=== PATIENT | female | born 2000 | race Caucasian/White ===

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

== ENCOUNTER 2018-04-01 20:10 | Emergency (ER) | payer OTHER ==
[2018-04-01] MEDS ORDERED: ACETAMINOPHEN IV (For NPO) 1,000 MG in EMPTY BAG 1 BAG IVPB STA (20:34)
[2018-04-01] MEDS ORDERED: KETOROLAC 30 MG/ML 1 ML VIAL IVP STA (20:35)
[2018-04-01] MEDS ORDERED: SODIUM CHLORIDE 0.9% 1,000 ML IV ONE (20:35)
--- NOTE | 2018-04-01 20:39 | ED ---
Headache HPI - General Mode of arrival: ambulatory Limitations: no limitations <Silva Sandoval - Last Filed: 04/01/18 23:27> <Susanne Thompson - Last Filed: 04/02/18 03:05> - General Chief Complaint: Headache Stated Complaint: headache Time Seen by Provider: 04/01/18 20:22 - History of Present Illness Initial Comments: 18-year-old female patient presents to the emergency department today for evaluation of migraine headache. Patient is have a history of migraines and gets them frequently. Patient states that today the pain is located throughout her head as if she is wearing a cap. Patient states it does radiate down to her neck. States she is sensitive to light. Denies any nausea, vomiting, weakness, blurred vision, double vision, or dizziness with this headache. She denies any new symptoms. States the headache is typical of her usual migraine pattern. States that she did take Tylenol and Motrin earlier in the day and it did not help. Patient denies any recent rash, fever, chills, shortness breath, chest pain, abdominal pain, diarrhea, constipation, back pain, numbness, tingling, dizziness, weakness, hematuria, dysuria, urinary urgency, urinary frequency, or any other complaints. Denies any chance of . (Silva Sandoval) - Related Data Home Medications Medication Instructions Recorded Confirmed Ibuprofen [Motrin Ib] 800 mg PO Q8H PRN 08/28/17 04/01/18 Acetaminophen [Tylenol Extra 1,000 mg PO BID PRN 04/01/18 04/01/18 Strength] Previous Rx's Medication Instructions Recorded SUMAtriptan SUCCINATE [Imitrex] 25 mg PO DAILY PRN #10 tablet 08/28/17 Allergies Allergy/AdvReac Type Severity Reaction Status Date / Time No Known Allergies Allergy Verified 04/01/18 21:14 Review of Systems ROS Other: All systems not noted in ROS Statement are negative. <Silva Sandoval - Last Filed: 04/01/18 23:27> ROS Other: All systems not noted in ROS Statement are negative. <Susanne Thompson - Last Filed: 04/02/18 03:05> ROS Statement: Those systems with pertinent positive or pertinent negative responses have been documented in the HPI. Past Medical History Additional Past Medical History / Comment(s): Migraines History of Any Multi-Drug Resistant Organisms: None Reported Past Surgical History: No Surgical Hx Reported Past Psychological History: No Psychological Hx Reported Smoking Status: Never smoker Past Alcohol Use History: None Reported Past Drug Use History: None Reported <Silva Sandoval - Last Filed: 04/01/18 23:27> General Exam Limitations: no limitations General appearance: alert, in no apparent distress, other (This is a well- developed, well-nourished adult female patient in no acute distress. Vital signs upon presentation are temperature 98.2F, pulse 89, respirations 18, blood pressure 128/83, pulse ox 98% on room air.) Eye exam: Present: normal appearance, PERRL, EOMI. Absent: scleral icterus, conjunctival injection, periorbital swelling ENT exam: Present: normal exam, normal oropharynx, mucous membranes moist Respiratory exam: Present: normal lung sounds bilaterally. Absent: respiratory distress, wheezes, rales, rhonchi, stridor Cardiovascular Exam: Present: regular rate, normal rhythm, normal heart sounds. Absent: systolic murmur, diastolic murmur, rubs, gallop, clicks GI/Abdominal exam: Present: soft, normal bowel sounds. Absent: distended, tenderness, guarding, rebound, rigid Neurological exam: Present: alert, oriented X3, CN II-XII intact, other ( Strength in all 4 extremities is 5/5. ) Psychiatric exam: Present: normal affect, normal mood Skin exam: Present: warm, dry, intact, normal color. Absent: rash <Silva Sandoval - Last Filed: 04/01/18 23:27> Vital Signs 04/01/18 04/01/18 20:14 22:14 Temperature 98.2 F 97.9 F Pulse Rate 89 81 Respiratory 18 16 Rate Blood Pressure 128/83 142/94 O2 Sat by Pulse 98 100 Oximetry Medical Decision Making <Silva Sandoval - Last Filed: 04/01/18 23:27> <Susanne Thompson - Last Filed: 04/02/18 03:05> - Medical Decision Making 18-year-old female patient presents the emergency department today for evaluation of migraine headache. Patient does have history of migraine headache reports no new symptoms. States her symptoms are consistent with her usual migraine pattern. Physical examination is unremarkable. She is neurologically intact with no focal deficits. Did start IV and give IV medication for pain. She was driving herself to her unable to give her any sedative medications. Upon reevaluation patient does have improved symptoms. States she still does have a slight headache but is willing to be discharged home to rest. She is instructed to follow-up with her primary care physician for recheck in 1-2 days. Return parameters discussed in detail. She verbalizes understanding and agrees with this plan. (Silva Sandoval) I was available for consultation in the emergency department. The history and physical exam were done by the midlevel provider. I was consulted for this patient's care. I reviewed the case with the midlevel provider and based on their presentation of the patient, I agree with the assessment, medical decision making and plan of care as documented. (Susanne Thompson) Disposition Is patient prescribed a controlled substance at d/c from ED?: No Time of Disposition: 22:06 <Silva Sandoval - Last Filed: 04/01/18 23:27> <Susanne Thompson - Last Filed: 04/02/18 03:05> Clinical Impression: Migraine headache Disposition: HOME SELF-CARE Condition: Good Instructions: Migraine Headache (ED) Additional Instructions: Increase fluids. Continue all medications as directed. Follow-up through primary care physician for recheck in 1-2 days. Return here immediately for any new, worsening, or concerning symptoms. Referrals: None,Stated [Primary Care Provider] - 1-2 days
[2018-04-01 22:16] VITALS: BP 142/94; PULSE 81; RESP 16; TEMP 97.9
== END 2018-04-01 22:10 | disposition home or self-care (01) ==
LOC: EC 20:10
DX: G43.909 Migraine, unspecified, not intractable, without status migrainosus (principal); M54.2 Cervicalgia
CPT/HCPCS: 99283; 96374; 96375; 96361; J1885; J0131

== ENCOUNTER 2018-07-13 19:00 | Emergency (ER) | payer OTHER ==
[2018-07-13 19:04] VITALS: TEMP 97.4
[2018-07-13] MEDS ORDERED: SODIUM CHLORIDE 0.9% 1,000 ML IV STA (19:06)
[2018-07-13] MEDS ORDERED: ONDANSETRON 4 MG/2 ML VIAL IVP STA (19:13)
[2018-07-13] MEDS ORDERED: diphenhydrAMINE 50 MG/ML 1 ML VIAL IVP STA (19:14)
[2018-07-13] MEDS ORDERED: ACETAMINOPHEN IV (For NPO) 1,000 MG in EMPTY BAG 1 BAG IVPB ONE (19:15)
--- NOTE | 2018-07-13 19:17 | ED ---
General Adult HPI - General Chief complaint: Headache Stated complaint: nausea Time Seen by Provider: 07/13/18 19:05 Source: patient Mode of arrival: ambulatory Limitations: no limitations - Related Data Home Medications Medication Instructions Recorded Confirmed Fluticasone Nasal [place] [Flonase 1 - 2 spray EA NOSTRIL BID PRN 07/13/18 Nasal [place]] Loratadine [Claritin] 10 mg PO DAILY 07/13/18 07/13/18 SUMAtriptan SUCCINATE [Imitrex] 50 mg PO DAILY PRN 07/13/18 07/13/18 Allergies Allergy/AdvReac Type Severity Reaction Status Date / Time No Known Allergies Allergy Verified 07/13/18 19:22 Review of Systems ROS Statement: Those systems with pertinent positive or pertinent negative responses have been documented in the HPI. ROS Other: All systems not noted in ROS Statement are negative. Past Medical History Additional Past Medical History / Comment(s): Migraines History of Any Multi-Drug Resistant Organisms: None Reported Past Surgical History: No Surgical Hx Reported Past Psychological History: No Psychological Hx Reported Smoking Status: Never smoker Past Alcohol Use History: None Reported Past Drug Use History: None Reported General Exam Limitations: no limitations Course Vital Signs 07/13/18 07/13/18 19:02 21:43 Temperature 97.4 F L Pulse Rate 92 87 Respiratory 18 16 Rate Blood Pressure 139/96 120/81 O2 Sat by Pulse 97 97 Oximetry Medical Decision Making - Medical Decision Making Dictation was produced using [employer] dictation software. please excuse any grammatical, word or spelling errors. Chief Complaint: 18-year-old female presents with migraine headache. History of Present Illness: Patient is 18-year-old female she has past medical history of migraine headaches. She states her headache started yesterday. It started off small and increased to its intensity today. Patient does have history of migraines. She states her headache is usual. Denies as being the worse headache of her life. Patient does have medications for headaches when necessary. She takes Imitrex however given the nausea and vomiting sheet through her medication back up. Patient states she just got done with having flu couple days ago. Patient has no complaints at this time. The ROS documented in this emergency department record has been reviewed and confirmed by me. Those systems with pertinent positive or negative responses have been documented in the HPI. All other systems are other negative and/or noncontributory. PHYSICAL EXAM: General Impression: Alert and oriented x3, not in acute distress HEENT: Normocephalic atraumatic, extra-ocular movements intact, pupils equal and reactive to light bilaterally, mucous membranes moist. Cardiovascular: Heart regular rate and rhythm, S1&S2 audible, no murmurs, rubs or gallops Chest: Lungs clear to auscultation bilaterally, no rhonchi, no wheeze, no rales Abdomen: Bowel sounds present, abdomen soft, non-tender, non-distended, no organomegaly Musculoskeletal: Pulses present and equal in all extremities, no peripheral edema Motor: Power 5/5 bilaterally, no focal deficits noted Neurological: CN II-XII grossly intact, no focal motor or sensory deficits noted Skin: Intact with no visualized rashes Psych: Normal affect and mood ED course: 18-year-old female with clinical presentation consistent with migraine headache. As upon arrival are within acceptable limits. Patient given headache cocktail. She reevaluated found have improved symptoms. Patient clear for discharge. - Lab Data Lab Results 07/13/18 Range/Units 20:42 Urine HCG, Qual Not Detected (Not Detectd) Disposition Clinical Impression: Headache Disposition: HOME SELF-CARE Condition: Good Instructions (If sedation given, give patient instructions): Acute Headache (ED ) Is patient prescribed a controlled substance at d/c from ED?: No Referrals: Glen Mosqueda MD [Primary Care Provider] - 1-2 days Time of Disposition: 22:14
[2018-07-13] MEDS ORDERED: KETOROLAC 30 MG/ML 1 ML VIAL IVP STA (20:58)
[2018-07-13] MEDS ORDERED: DEXAMETHASONE SOD PHOSPHATE 10 MG/ML 1 ML VIAL IV STA (20:58)
[2018-07-13] MEDS: MAGNESIUM SULFATE-D5W PMX 1 GM in DEXTROSE/WATER 1 100ML.BAG IVPB SCH ×2 (21:40→22:20)
[2018-07-13 21:44] VITALS: BP 120/81; PULSE 87; RESP 16
== END 2018-07-13 22:18 | disposition home or self-care (01) ==
LOC: EC 19:00
DX: R51 Headache (principal); R11.2 Nausea with vomiting, unspecified; Z86.69 Personal history of other diseases of the nervous system and sense organs; Z79.899 Other long term (current) drug therapy
CPT/HCPCS: 81025; 99283; 96365; 96375 ×5; 96361; J1200; J1100; J2405; J1885; J3475; J0131

== ENCOUNTER 2018-08-25 11:21 | Emergency (ER) | payer OTHER ==
[2018-08-25] MEDS ORDERED: SODIUM CHLORIDE 0.9% 1,000 ML IV ONE (11:46)
[2018-08-25] MEDS ORDERED: ONDANSETRON 4 MG/2 ML VIAL IVP STA (11:46)
--- NOTE | 2018-08-25 11:51 | ED ---
General Adult HPI - General Chief complaint: Nausea/Vomiting/Diarrhea Stated complaint: vomiting Time Seen by Provider: 08/25/18 11:25 Source: patient, RN notes reviewed Mode of arrival: ambulatory Limitations: no limitations - History of Present Illness Initial comments: This is a 18-year-old female presents emergency department complaining of nausea and vomiting since 3:00 this morning. Patient states anytime she tries to eat or drink anything since 3 AM she's been vomiting it up. Patient states her abdomen is crampy but no actual pain. Patient denies any diarrhea. Patient states she is not sexually active and has not been for a while so she is not . Patient denies any fever chills. Patient denies any cough - Related Data Home Medications Medication Instructions Recorded Confirmed SUMAtriptan SUCCINATE [Imitrex] 50 mg PO DAILY PRN 07/13/18 08/25/18 Atomoxetine HCl [Strattera] 40 mg PO DAILY 08/25/18 08/25/18 Allergies Allergy/AdvReac Type Severity Reaction Status Date / Time No Known Allergies Allergy Verified 08/25/18 12:15 Review of Systems ROS Statement: Those systems with pertinent positive or pertinent negative responses have been documented in the HPI. ROS Other: All systems not noted in ROS Statement are negative. Past Medical History Additional Past Medical History / Comment(s): Migraines History of Any Multi-Drug Resistant Organisms: None Reported Past Surgical History: No Surgical Hx Reported Past Psychological History: No Psychological Hx Reported Smoking Status: Never smoker Past Alcohol Use History: None Reported Past Drug Use History: None Reported General Exam - General Exam Comments Initial Comments: GENERAL: Patient is well-developed and well-nourished. Patient is nontoxic and well-hydrated and is in mild distress. ENT: Neck is soft and supple. No significant lymphadenopathy is noted. Oropharynx is clear. Dry mucous membranes. Neck has full range of motion without eliciting any pain. EYES: The sclera were anicteric and conjunctiva were pink and moist. Extraocular movements were intact and pupils were equal round and reactive to light. Eyelids were unremarkable. PULMONARY: Unlabored respirations. Good breath sounds bilaterally. No audible rales rhonchi or wheezing was noted. CARDIOVASCULAR: There is a regular rate and rhythm without any murmurs gallops or rubs. ABDOMEN: Soft and nontender with normal bowel sounds. SKIN: Skin is clear with no lesions or rashes and otherwise unremarkable. NEUROLOGIC: Patient is alert and oriented x3. Cranial nerves II through XII are grossly intact. Motor and sensory are also intact. Normal speech, volume and content. Symmetrical smile. MUSCULOSKELETAL: Normal extremities with adequate strength and full range of motion. LYMPHATICS: No significant lymphadenopathy is noted PSYCHIATRIC: Normal psychiatric evaluation. Limitations: no limitations Course Vital Signs 08/25/18 11:31 Temperature 97.8 F Pulse Rate 94 Respiratory 16 Rate Blood Pressure 134/91 O2 Sat by Pulse 99 Oximetry Medical Decision Making - Medical Decision Making I will back into room to reevaluate the patient she was feeling considerably better and had no vomiting in the emergency department. - Lab Data Result diagrams: 08/25/18 11:55 08/25/18 11:55 Lab Results 08/25/18 08/25/18 Range/Units 11:55 11:55 WBC 16.1 H (4.0-11.0) k/uL RBC 5.24 (3.80-5.40) m/uL Hgb 14.9 (11.4-16.0) gm/dL Hct 45.6 (34.0-46.0) % MCV 86.9 (80.0-100.0) fL MCH 28.5 (25.0-35.0) pg MCHC 32.8 (31.0-37.0) g/dL RDW 13.1 (11.5-15.5) % Plt Count 358 (150-450) k/uL Neutrophils % 95 % Lymphocytes % 2 % Monocytes % 1 % Eosinophils % 2 % Basophils % 0 % Neutrophils # 15.2 H (1.3-7.7) k/uL Lymphocytes # 0.3 L (1.0-4.8) k/uL Monocytes # 0.2 (0-1.0) k/uL Eosinophils # 0.3 (0-0.7) k/uL Basophils # 0.0 (0-0.2) k/uL Sodium 140 (137-145) mmol/L Potassium 4.2 (3.5-5.1) mmol/L Chloride 106 (98-107) mmol/L Carbon Dioxide 22 (22-30) mmol/L Anion Gap 12 mmol/L BUN 17 (7-17) mg/dL Creatinine 0.56 (0.52-1.04) mg/dL Est GFR (CKD-EPI)AfAm >90 (>60 ml/min/1.73 sqM) Est GFR (CKD-EPI)NonAf >90 (>60 ml/min/1.73 sqM) Glucose 120 H (74-99) mg/dL Calcium 10.1 (8.4-10.2) mg/dL Total Bilirubin 3.0 H (0.2-1.3) mg/dL AST 25 (14-36) U/L ALT 39 (9-52) U/L Alkaline Phosphatase 75 (38-126) U/L Total Protein 7.7 (6.3-8.2) g/dL Albumin 4.8 (3.5-5.0) g/dL Disposition Clinical Impression: Acute vomiting Disposition: HOME SELF-CARE Condition: Good Instructions (If sedation given, give patient instructions): Acute Nausea and Vomiting (ED) Is patient prescribed a controlled substance at d/c from ED?: No Referrals: Glen Mosqueda MD [Primary Care Provider] - 1-2 days Time of Disposition: 13:08
[2018-08-25 12:11] LABS: Basophils % (A) 0 %; Eosinophils # (A) 0.3 k/uL (0-0.7); Eosinophils % (A) 2 %; HCT 45.6 % (34.0-46.0); HGB 14.9 gm/dL (11.4-16.0); Lymphocytes # (A) 0.3 k/uL (1.0-4.8); Lymphocytes % (A) 2 %; MCH 28.5 pg (25.0-35.0); MCHC 32.8 g/dL (31.0-37.0); MCV 86.9 fL (80.0-100.0); Mean Platelet Volume 6.7; Monocytes # (A) 0.2 k/uL (0-1.0); Monocytes % (A) 1 %; Neutrophils # (A) 15.2 k/uL (1.3-7.7); Neutrophils % (A) 95 %; Platelet Count 358 k/uL (150-450); RBC 5.24 m/uL (3.80-5.40); RDW 13.1 % (11.5-15.5); WBC 16.1 k/uL (4.0-11.0)
[2018-08-25 12:32] LABS: ALT 39 U/L (9-52); AST 25 U/L (14-36); Albumin 4.8 g/dL (3.5-5.0); Alkaline Phosphatase 75 U/L (38-126); Anion Gap 12 mmol/L; Blood Urea Nitrogen 17 mg/dL (7-17); Calcium 10.1 mg/dL (8.4-10.2); Carbon Dioxide 22 mmol/L (22-30); Chloride 106 mmol/L (98-107); Glucose 120 mg/dL (74-99); Potassium 4.2 mmol/L (3.5-5.1); Sodium 140 mmol/L (137-145); Total Protein 7.7 g/dL (6.3-8.2)
[2018-08-25] MEDS ORDERED: ONDANSETRON 4 MG ODT STARTER PACK 2 TAB BTL PO STA (13:08)
[2018-08-25 13:20] VITALS: BP 123/74; PULSE 98; RESP 18; TEMP 98.4
== END 2018-08-25 13:19 | disposition home or self-care (01) ==
LOC: EC 11:21
DX: R11.2 Nausea with vomiting, unspecified (principal); R19.8 Other specified symptoms and signs involving the digestive system and abdomen; Z79.899 Other long term (current) drug therapy
CPT/HCPCS: 36415; 80053; 85025; 99284; 96374; 96361; J2405; S0119

== ENCOUNTER → 2018-10-21 | Outpatient (CLI) | payer OTHER ==
--- NOTE | 2018-10-21 21:58 | MR ---
EXAMINATION TYPE: MR brain wo con DATE OF EXAM: 10/21/2018 COMPARISON: NONE HISTORY: Migraines TECHNIQUE: Multiplanar, multisequence imaging of the brain and brainstem is performed without IV cont rast. FINDINGS: Diffusion weighted images demonstrate no evidence of a recent infarct or other diffusion abnormality. There is no extraaxial fluid collection or significant white matter signal abnormality. The ventricu lar system and cisternal spaces are normal in size and appearance. The brain volume is age appropria te. Midline structures demonstrate normal morphology. The craniocervical junction shows slightly low-lyi ng cerebellar tonsils but not greater than 5 mm inferior descent. Normal vascular flow voids are pres ent. The globes are slightly distorted by artifact. Visualized paranasal sinuses are clear. IMPRESSION: Possible cerebellar ectopia. No Chiari type I malformation. No suspicious findings otherw ise seen to account for patient's symptoms. If outside MRI and/or report become available an addendum may be issued.
== END | disposition home or self-care (01) ==
LOC: RADMRIMAIN 09:11
PROVIDERS: ATTEND Psychiatry & Neurology Neurology
DX: G43.009 Migraine without aura, not intractable, without status migrainosus (principal)
CPT/HCPCS: 70551

== ENCOUNTER 2019-06-06 08:51 | Emergency (ER) | payer OTHER ==
[2019-06-06 08:59] VITALS: RESP 18; TEMP 97.8
[2019-06-06] MEDS ORDERED: FLUTICASONE 50MCG/SPRAY NASAL 16GM EA NOSTRIL STA (09:28)
--- NOTE | 2019-06-06 09:43 | ED ---
General Adult HPI - General Chief complaint: ENT Stated complaint: ENT Time Seen by Provider: 06/06/19 09:12 Source: patient, RN notes reviewed, old records reviewed Mode of arrival: ambulatory - History of Present Illness Initial comments: 19-year-old female patient past history significant for migraine headache disorder presents to ED for chief complaint of right ear pain and sore throat . Denies any documented fevers at home. Denies regular cough. Denies any chance of being . Denies abdominal pain. Denies any other complaints. Systemic: Pt denies fatigue, fever/chills, rash. Pt denies weakness, night sweats, weight loss. Neuro: Pt denies headache, visual disturbances, syncope or pre-syncope. HEENT: Pt denies ocular discharge or irritation, otalgia, rhinorrhea, or notable lymphadenopathy. Cardiopulmonary: Pt denies chest pain, SOB, heart palpitations, dyspnea on exertion. Abdominal/GI: Pt denies abdominal pain, n/v/d. : Pt denies dysuria, burning w/ urination, frequency/urgency. Denies new onset urinary or bowel incontinence. MSK: Pt denies myalgia, loss of strength or function in extremities. Neuro: Pt denies new onset weakness, paresthesias. - Related Data Home Medications Medication Instructions Recorded Confirmed SUMAtriptan SUCCINATE [Imitrex] 50 mg PO DAILY PRN 07/13/18 06/06/19 Atomoxetine HCl [Strattera] 40 mg PO DAILY 08/25/18 06/06/19 Fluticasone Nasal [place] [Flonase 1 spray EA NOSTRIL DAILY 06/06/19 06/06/19 Nasal [place]] Folic Acid 1 mg PO DAILY 06/06/19 06/06/19 Loratadine [Claritin] 10 mg PO DAILY 06/06/19 06/06/19 Allergies Allergy/AdvReac Type Severity Reaction Status Date / Time No Known Allergies Allergy Verified 06/06/19 09:43 Review of Systems ROS Statement: Those systems with pertinent positive or pertinent negative responses have been documented in the HPI. ROS Other: All systems not noted in ROS Statement are negative. Past Medical History Additional Past Medical History / Comment(s): Migraines History of Any Multi-Drug Resistant Organisms: None Reported Past Surgical History: No Surgical Hx Reported Past Psychological History: No Psychological Hx Reported Smoking Status: Never smoker Past Alcohol Use History: None Reported Past Drug Use History: None Reported General Exam - General Exam Comments Initial Comments: Constitutional: NAD, AOX3, Pt has pleasant affect. HEENT: NC/AT, trachea midline, neck supple, no lymphadenopathy. Posterior pharynx mildly erythematous, without exudates. External ears appear normal, without discharge. TMs pale [place] bilaterally. Mucous membranes moist. Eyes PERRLA, EOM intact. There is no scleral icterus. No pallor noted. Cardiopulmonary: RRR, no murmurs, rubs or gallops, no JVD noted. Lungs CTAB in anterior and posterior pang. No peripheral edema. Abdominal exam: Abdomen soft and non-distended. Abdomen non-tender to palpation in all 4 quadrants. Bowel sounds active in LLQ. No hepatosplenomegaly. No ecch ymosis Neuro: CN II-XII grossly intact. No nuchal rigidity. No raccon eyes, no antoine sign, no hemotympanum. No cervical spinal tenderness. MSK: No posterior calf tenderness bilaterally, homans sign negative bilaterally. Posterior tibialis and radial pulse +2 bilaterally. Sensation intact in upper and lower extremities. Full active ROM in upper and lower extremities, 5/5 stregnth. Course Vital Signs 06/06/19 08:57 Temperature 97.8 F Pulse Rate 105 H Respiratory 18 Rate Blood Pressure 130/90 O2 Sat by Pulse 98 Oximetry Medical Decision Making - Medical Decision Making 19-year-old female patient past history significant for migraine headache disorder presents to ED for chief complaint of right ear pain and sore throat . Denies any documented fevers at home. Denies regular cough. Denies any chance of being . Denies abdominal pain. Denies any other complaints. Patient vital signs stable, afebrile. Physical exam displayed mild amount of posterior pharyngeal erythema. Tympanic membranes pale [place] bilaterally. Group A strep is negative. Patient provided Flonase for sinus congestion. Likely experiencing a viral pharyngitis syndrome as well as post nasal drip. Will be discharged to follow up with primary care provider tomorrow. Return to ER if condition worsens. Case discussed with Dr. Lynne. - Lab Data Lab Results 06/06/19 Range/Units 09:44 Group A Strep Rapid Negative (Negative) Disposition Clinical Impression: Sore throat, Pharyngitis Disposition: HOME SELF-CARE Condition: Stable Instructions (If sedation given, give patient instructions): Pharyngitis (ED) Additional Instructions: Follow-up with primary care provider tomorrow. May use [id number] decongestants for sinus congestion. May use Flonase twice per day for the next 3 days. Use Tylenol or Motrin for throat discomfort. Return to ER if condition worsens. Is patient prescribed a controlled substance at d/c from ED?: No Referrals: Glen Mosqueda MD [Primary Care Provider] - 1-2 days
--- NOTE | 2019-06-06 10:46 | ED ---
Medical Decision Making - Medical Decision Making On repeat exam patient does have some right tympanic membrane erythema, patient will be treated for otitis media. - Lab Data Lab Results 06/06/19 Range/Units 09:44 Group A Strep Rapid Negative (Negative) Disposition Clinical Impression: Sore throat, Pharyngitis, Otitis media Disposition: HOME SELF-CARE Condition: Stable Instructions (If sedation given, give patient instructions): Pharyngitis (ED) Additional Instructions: Follow-up with primary care provider tomorrow. May use [id number] decongestants for sinus congestion. May use Flonase twice per day for the next 3 days. Use Tylenol or Motrin for throat discomfort. Return to ER if condition worsens. Prescriptions: Amoxicillin/Potassium Clav [Augmentin 875-125 Tablet] 1 each PO Q12HR 7 Days #14 tab Is patient prescribed a controlled substance at d/c from ED?: No Referrals: Glen Mosqueda MD [Primary Care Provider] - 1-2 days
[2019-06-06 11:15] VITALS: BP 131/90; PULSE 103
== END 2019-06-06 11:04 | disposition home or self-care (01) ==
LOC: EC 08:51
DX: J02.9 Acute pharyngitis, unspecified (principal); H66.91 Otitis media, unspecified, right ear; Z79.899 Other long term (current) drug therapy
CPT/HCPCS: 87081; 87430; 99283

== ENCOUNTER 2019-06-07 22:16 | Emergency (ER) | payer OTHER ==
[2019-06-07 22:23] VITALS: PULSE 120; RESP 18; TEMP 98
--- NOTE | 2019-06-07 23:21 | ED ---
ENT HPI - General Chief complaint: ENT Stated complaint: Sore throat, side affects of antibiotic Time Seen by Provider: 06/07/19 22:32 Source: patient Mode of arrival: ambulatory Limitations: no limitations - History of Present Illness Initial comments: Patient is a 19-year-old female presenting to the emergency department with a chief complaint of a sore throat. Patient reports she was here recently and diagnosed with pharyngitis. This was most likely viral reported to the provider. Rapid strep negative. Patient was discharged with amoxicillin. Patient reports the symptoms are continuing to have. Patient also now complaining of right-sided ear pain. Patient reports the antibiotic is making her feel dizzy sometimes. She denies any other symptoms at this time. Denies any previous history to amoxicillin. Patient had previously taken this medication without any issues. - Related Data Home Medications Medication Instructions Recorded Confirmed SUMAtriptan SUCCINATE [Imitrex] 50 mg PO DAILY PRN 07/13/18 06/06/19 Atomoxetine HCl [Strattera] 40 mg PO DAILY 08/25/18 06/06/19 Fluticasone Nasal [place] [Flonase 1 spray EA NOSTRIL DAILY 06/06/19 06/06/19 Nasal [place]] Folic Acid 1 mg PO DAILY 06/06/19 06/06/19 Loratadine [Claritin] 10 mg PO DAILY 06/06/19 06/06/19 Previous Rx's Medication Instructions Recorded Amoxicillin/Potassium Clav 1 each PO Q12HR 7 Days #14 tab 06/06/19 [Augmentin 875-125 Tablet] methylPREDNISolone [Medrol Dose 4 mg PO DIRECTED #1 pack 06/07/19 Pack] Allergies Allergy/AdvReac Type Severity Reaction Status Date / Time No Known Allergies Allergy Verified 06/06/19 09:43 Review of Systems ROS Statement: Those systems with pertinent positive or pertinent negative responses have been documented in the HPI. ROS Other: All systems not noted in ROS Statement are negative. Past Medical History Additional Past Medical History / Comment(s): Migraines History of Any Multi-Drug Resistant Organisms: None Reported Past Surgical History: No Surgical Hx Reported Past Psychological History: No Psychological Hx Reported Smoking Status: Never smoker Past Alcohol Use History: None Reported Past Drug Use History: None Reported General Exam Limitations: no limitations General appearance: alert, in no apparent distress Head exam: Present: atraumatic, normocephalic, normal inspection Eye exam: Present: normal appearance Pupils: Present: normal accommodation ENT exam: Present: normal exam, normal oropharynx (Enlarged tonsils with no exudates. Uvula midline. No changes to voice. No drooling. No strawberry tongue.), mucous membranes moist, TM's normal bilaterally, normal external ear exam Neck exam: Present: normal inspection, full ROM. Absent: lymphadenopathy Respiratory exam: Present: normal lung sounds bilaterally Cardiovascular Exam: Present: regular rate, normal rhythm, normal heart sounds Extremities exam: Present: normal inspection, full ROM Back exam: Present: normal inspection, full ROM Neurological exam: Present: alert, oriented X3 Psychiatric exam: Present: normal affect, normal mood Skin exam: Present: warm, dry, intact, normal color. Absent: rash Course Vital Signs 06/07/19 22:19 Temperature 98.0 F Pulse Rate 120 H Respiratory 18 Rate O2 Sat by Pulse 98 Oximetry Medical Decision Making - Medical Decision Making Patient is a 19-year-old female presents emergency Department with a chief complaint of a sore throat. On exam patient does have large tonsils but no signs of exudates. No strawberry tongue or other oral lesions. No rashes either. No signs of scarlet fever. She is advised to continue taking the amoxicillin. Patient will be discharged with a Medrol Dosepak to provide symptomatically. I suspect the patient has viral pharyngitis. Strict return parameters were thoroughly discussed with patient was understanding and agreeable. Case discussed with physician. - Lab Data Lab Results 06/07/19 Range/Units 22:35 Influenza Type A RNA Not Detected (Not Detectd) Influenza Type B (PCR) Not Detected (Not Detectd) Disposition Clinical Impression: Sore throat Disposition: HOME SELF-CARE Condition: Stable Instructions (If sedation given, give patient instructions): Pharyngitis (ED) Additional Instructions: Please see prescribe medication as directed. Follow-up with primary care. Please return to emergency department if symptoms worsen. Prescriptions: methylPREDNISolone [Medrol Dose Pack] 4 mg PO DIRECTED #1 pack Is patient prescribed a controlled substance at d/c from ED?: No Referrals: Glen Mosqueda MD [Primary Care Provider] - 1-2 days Time of Disposition: 23:21
[2019-06-07] MEDS ORDERED: predniSONE 20 MG TAB PO STA (23:27)
== END 2019-06-07 23:35 | disposition home or self-care (01) ==
LOC: EC 22:16
DX: J02.9 Acute pharyngitis, unspecified (principal); H92.01 Otalgia, right ear
CPT/HCPCS: 87502; 99283; J7512

== ENCOUNTER 2019-10-02 14:49 | Emergency (ER) | payer OTHER ==
[2019-10-02 14:57] VITALS: TEMP 98.4
[2019-10-02] MEDS ORDERED: SODIUM CHLORIDE 0.9% 1,000 ML IV STA (15:00)
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
[2019-10-02] MEDS ORDERED: ALPRAZolam 0.5 MG TAB PO STA (15:21)
[2019-10-02 15:27] LABS: Appearance,Urine Cloudy (Clear); Bilirubin,Urine Negative (Negative); Blood,Urine Large (Negative); Color,Urine Red; Glucose,Urine (UA) Negative (Negative); Ketones,Urine 1+ (Negative); Leukocyte Esterase,Urine Moderate (Negative); Mucus,Urine Moderate /hpf; Nitrite,Urine Negative (Negative); Protein,Urine 2+ (Negative); RBC,Urine >182 /hpf (0-5); Specific Gravity,Urine 1.022 (1.001-1.035); Squamous Epithelial Cell,Urine 9 /hpf (0-4); Urobilinogen,Urine <2.0 mg/dL (<2.0); WBC,Urine 103 /hpf (0-5)
[2019-10-02 15:40] LABS: Basophils % (A) 0 %; Eosinophils # (A) 0.2 k/uL (0-0.7); Eosinophils % (A) 1 %; HCT 44.5 % (34.0-46.0); HGB 15.1 gm/dL (11.4-16.0); Lymphocytes # (A) 2.1 k/uL (1.0-4.8); Lymphocytes % (A) 18 %; MCH 29.7 pg (25.0-35.0); MCHC 33.9 g/dL (31.0-37.0); MCV 87.6 fL (80.0-100.0); Mean Platelet Volume 7.4; Monocytes # (A) 0.4 k/uL (0-1.0); Monocytes % (A) 3 %; Neutrophils # (A) 8.8 k/uL (1.3-7.7); Neutrophils % (A) 76 %; Platelet Count 340 k/uL (150-450); RBC 5.08 m/uL (3.80-5.40); RDW 12.9 % (11.5-15.5); WBC 11.6 k/uL (3.8-10.6)
[2019-10-02 15:51] LABS: ALT 17 U/L (4-34); AST 26 U/L (14-36); African American GFR (CKD) >90 (>60 ml/min/1.73 sqM); Albumin 5.1 g/dL (3.5-5.0); Alkaline Phosphatase 74 U/L (38-126); Anion Gap 12 mmol/L; Blood Urea Nitrogen 13 mg/dL (7-17); Calcium 10.5 mg/dL (8.4-10.2); Carbon Dioxide 22 mmol/L (22-30); Chloride 108 mmol/L (98-107); Glucose 89 mg/dL (74-99); Non-African American GFR(CKD) >90 (>60 ml/min/1.73 sqM); Potassium 4.1 mmol/L (3.5-5.1); Sodium 142 mmol/L (137-145); Total Bilirubin 2.2 mg/dL (0.2-1.3); Total Protein 8.2 g/dL (6.3-8.2)
[2019-10-02] MEDS ORDERED: cefTRIAXone IN SWFI 1,000 MG/10 ML SYRINGE IVP STA (16:00)
[2019-10-02 16:23] VITALS: RESP 16
--- NOTE | 2019-10-02 16:34 | XR ---
EXAMINATION TYPE: XR chest 2V DATE OF EXAM: 10/02/2019 COMPARISON: NONE HISTORY: Short of breath TECHNIQUE: FINDINGS: Heart and mediastinum are normal. Lungs are clear. Diaphragm is normal. Bony thorax appears normal. IMPRESSION: Normal chest.
[2019-10-02 17:05] VITALS: BP 124/85; PULSE 86
== END 2019-10-02 17:21 | disposition home or self-care (01) ==
LOC: EC 14:49
DX: F41.9 Anxiety disorder, unspecified (principal); R11.2 Nausea with vomiting, unspecified; D72.829 Elevated white blood cell count, unspecified; F17.200 Nicotine dependence, unspecified, uncomplicated; Z79.899 Other long term (current) drug therapy
CPT/HCPCS: 36415; 85379; 80053; 83690; 84484; 85025; 81001; 81025; 71046; 99285; 96374; 96361; J0696

== ENCOUNTER 2020-02-08 15:33 | Emergency (ER) | payer OTHER ==
[2020-02-08] MEDS ORDERED: diphenhydrAMINE 50 MG/ML 1 ML VIAL IVP STA (16:01)
[2020-02-08] MEDS ORDERED: ONDANSETRON 4 MG/2 ML VIAL IVP STA (16:01)
[2020-02-08] MEDS ORDERED: ACETAMINOPHEN TAB 325 MG TAB PO STA (16:01)
[2020-02-08] MEDS ORDERED: SODIUM CHLORIDE 0.9% 1,000 ML IV STA (16:01)
--- NOTE | 2020-02-08 16:42 | ED ---
General Adult HPI - General Chief complaint: Headache Stated complaint: Migraine/vomiting Time Seen by Provider: 02/08/20 15:40 Source: patient, RN notes reviewed, old records reviewed Mode of arrival: ambulatory Limitations: no limitations - History of Present Illness Initial comments: 19-year-old female patient past history of migraine headaches since ED for evaluation of migraine headache. Patient reports that she woke up intermittently after began experiencing migraine headache right temporal region. Patient reports it feels the same as her migraine headaches in the past. Denies any new or concerning features. Reports that she has had some nausea and a few episodes of emesis which does occur generally with her migraines. Denies any chance of being . Denies any other complaints at this time. Systemic: Pt denies fatigue, fever/chills, rash. Pt denies weakness, night sweats, weight loss. Neuro: Pt denies visual disturbances, syncope or pre-syncope. HEENT: Pt denies ocular discharge or irritation, otalgia, rhinorrhea, pharyngitis or notable lymphadenopathy. Cardiopulmonary: Pt denies chest pain, SOB, heart palpitations, dyspnea on exertion. Abdominal/GI: Pt denies abdominal pain, diarrhea. : Pt denies dysuria, burning w/ urination, frequency/urgency. Denies new onset urinary or bowel incontinence. MSK: Pt denies myalgia, loss of strength or function in extremities. Neuro: Pt denies new onset weakness, paresthesias. - Related Data Home Medications Medication Instructions Recorded Confirmed SUMAtriptan succinate [Imitrex] 50 mg PO DAILY PRN 07/13/18 10/02/19 Atomoxetine HCl [Strattera] 40 mg PO DAILY 08/25/18 10/02/19 Folic Acid 1 mg PO DAILY 06/06/19 10/02/19 Loratadine [Claritin] 10 mg PO DAILY 06/06/19 10/02/19 Topiramate [Topamax] 25 mg PO DAILY 10/02/19 10/02/19 Previous Rx's Medication Instructions Recorded Cephalexin [Keflex] 500 mg PO Q12HR 3 Days #6 cap 10/02/19 Allergies Allergy/AdvReac Type Severity Reaction Status Date / Time No Known Allergies Allergy Verified 02/08/20 15:38 Review of Systems ROS Statement: Those systems with pertinent positive or pertinent negative responses have been documented in the HPI. ROS Other: All systems not noted in ROS Statement are negative. Past Medical History Past Medical History: No Reported History Additional Past Medical History / Comment(s): Migraines History of Any Multi-Drug Resistant Organisms: None Reported Past Surgical History: No Surgical Hx Reported Past Psychological History: No Psychological Hx Reported Smoking Status: Never smoker Past Alcohol Use History: None Reported Past Drug Use History: None Reported General Exam - General Exam Comments Initial Comments: Constitutional: NAD, AOX3, Pt has pleasant affect. HEENT: NC/AT, trachea midline, neck supple, no lymphadenopathy. External ears appear normal, without discharge. Mucous membranes moist. Eyes PERRLA, EOM intact. There is no scleral icterus. No pallor noted. Cardiopulmonary: RRR, no murmurs, rubs or gallops, no JVD noted. Lungs CTAB in anterior and posterior pang. No peripheral edema. Abdominal exam: Abdomen soft and non-distended. Abdomen non-tender to palpation in all 4 quadrants. Bowel sounds active in LLQ. No hepatosplenomegaly. No ecchymosis Neuro: CN II-XII intact. No nuchal rigidity. No raccon eyes, no antoine sign. MSK: Full active ROM in upper and lower extremities, 5/5 stregnth. Limitations: no limitations Course Vital Signs 02/08/20 02/08/20 15:35 17:33 Temperature 98.2 F 98.4 F Pulse Rate 103 H 80 Respiratory 18 16 Rate Blood Pressure 135/93 120/84 O2 Sat by Pulse 100 100 Oximetry Medical Decision Making - Medical Decision Making . Female patient presented for evaluation of her headache. Patient vital signs are stable, afebrile. Physical exam displayed no acute pathology. Patient reports that this headache is identical to her migraines of the past 3 denies any new or concerning features. Patient declining intracranial imaging. Headache significantly improved in emergency department. Patient is requesting discharge. Follow-up with primary care provider and will return to ER if any worsening symptoms. Case discussed with Dr. Steen. Disposition Clinical Impression: Migraine headache Disposition: HOME SELF-CARE Condition: Stable Instructions (If sedation given, give patient instructions): Acute Headache (ED) Additional Instructions: follow-up with primary care provider tomorrow. Return to ER if any worsening symptoms. Is patient prescribed a controlled substance at d/c from ED?: No Referrals: Glen Mosqueda MD [Primary Care Provider] - 1-2 days
[2020-02-08 17:35] VITALS: BP 120/84; PULSE 80; RESP 16; TEMP 98.4
== END 2020-02-08 18:16 | disposition home or self-care (01) ==
LOC: EC 15:33
DX: G43.909 Migraine, unspecified, not intractable, without status migrainosus (principal); Z79.899 Other long term (current) drug therapy
CPT/HCPCS: 99283; 96374; 96375; 96361; J1200; J2405

== ENCOUNTER 2020-05-27 12:28 | Emergency (ER) | payer OTHER ==
[2020-05-27 12:37] VITALS: TEMP 97.8
[2020-05-27] MEDS ORDERED: METOCLOPRAMIDE 5 MG/ML 2 ML VIAL IVP STA (12:54)
[2020-05-27] MEDS ORDERED: SODIUM CHLORIDE 0.9% 1,000 ML IV STA (12:54)
[2020-05-27] MEDS ORDERED: KETOROLAC 15 MG/ML 1 ML VIAL IVP STA (12:54)
[2020-05-27] MEDS ORDERED: diphenhydrAMINE 50 MG/ML 1 ML VIAL IVP STA (12:54)
--- NOTE | 2020-05-27 12:57 | ED ---
Headache HPI - General Chief Complaint: Headache Stated Complaint: Headache,Blood in Vomit Time Seen by Provider: 05/27/20 12:39 Mode of arrival: ambulatory Limitations: no limitations - History of Present Illness Initial Comments: Patient is a 20-year-old female, with history of headaches, presenting to the emergency Department with complaints of a headache since this morning. Patient states she woke up with a headache and also had some nausea and a few episodes of vomiting. Patient states she saw a little bit of blood in her vomit is unusual for her. She is also complaining of generalized body aches, feeling chilled and having some mild cough. She denies any chest pain or shortness of breath. She has any fevers. She denies any abdominal pain or diarrhea. She de nies being at this time. She states she has not been around [place] with a known illness but did go to a recent holiday [place]. Patient has no further complaints at this time. Upon arrival to the ER, her vitals are stable. - Related Data Home Medications Medication Instructions Recorded Confirmed Atomoxetine HCl [Strattera] 40 mg PO DAILY 08/25/18 05/27/20 Folic Acid 1 mg PO DAILY 06/06/19 05/27/20 Loratadine [Claritin] 10 mg PO DAILY 06/06/19 05/27/20 Topiramate [Topamax] 25 mg PO BID 10/02/19 05/27/20 SUMAtriptan succinate [Imitrex] 50 mg PO DAILY PRN 05/27/20 05/27/20 Allergies Allergy/AdvReac Type Severity Reaction Status Date / Time No Known Allergies Allergy Verified 05/27/20 14:34 Review of Systems ROS Statement: Those systems with pertinent positive or pertinent negative responses have been documented in the HPI. ROS Other: All systems not noted in ROS Statement are negative. Past Medical History Past Medical History: No Reported History Additional Past Medical History / Comment(s): Migraines History of Any Multi-Drug Resistant Organisms: None Reported Past Surgical History: No Surgical Hx Reported Past Psychological History: No Psychological Hx Reported Smoking Status: Never smoker Past Alcohol Use History: None Reported Past Drug Use History: None Reported General Exam - General Exam Comments Initial Comments: GENERAL: Patient is well-developed and well-nourished. Patient is nontoxic and in no acute distress. HEAD: Atraumatic, normocephalic. EYES: Pupils equal round and reactive to light, extraocular movements intact, sclera anicteric, conjunctiva are normal. Eyelids were unremarkable. ENT: TMs normal, nares patent, oropharynx clear without exudates. Moist mucous membranes. NECK: Normal range of motion, supple without lymphadenopathy or JVD. LUNGS: Unlabored respirations. Breath sounds clear to auscultation bilaterally and equal. No wheezes rales or rhonchi. HEART: Regular rate and rhythm without murmurs, rubs or gallops. ABDOMEN: Soft, nontender, normoactive bowel sounds. No guarding, no rebound. No masses appreciated. : Deferred MUSCULOSKELETAL: Normal extremities with adequate strength and normal range of motion, no pitting or edema. No clubbing or cyanosis. NEUROLOGICAL: Patient is alert and oriented x 3. Motor and sensory are also intact. Cranial nerves II through XII grossly intact. Symmetrical smile. Normal speech, normal gait. PSYCH: Normal mood, normal affect. SKIN: Warm, Dry, normal turgor, no rashes or lesions noted. Limitations: no limitations Course Vital Signs 05/27/20 05/27/20 12:31 14:53 Temperature 97.8 F Pulse Rate 89 96 Respiratory 18 16 Rate Blood Pressure 162/107 125/85 O2 Sat by Pulse 100 100 Oximetry Medical Decision Making - Medical Decision Making Patient is a 20-year-old female with history of headaches, presenting with a headache since this morning, nausea and vomiting as well. She is afebrile, she does have some chills, body aches. Her exam is unremarkable, chest x-ray shows no acute process. Patient was given some fluids, Toradol, Reglan, and also was tested for Covid, this is pending. Patient reports improvement in her symptoms, she feels comfortable, home. We discussed that this is most likely viral in nature. She can continue with her already prescribed headache medications. Return parameters were discussed with the patient and she verbalized understanding. Case discussed with Dr. Longo. Disposition Clinical Impression: Headache, Viral illness Disposition: HOME SELF-CARE Condition: Stable Instructions (If sedation given, give patient instructions): Acute Headache (ED) Additional Instructions: Please return to the Emergency Department if symptoms worsen or any other concerns. X-ray today was normal, Covid test is pending. Continue to drink lots of water, follow-up with your PCP if symptoms persist. Is patient prescribed a controlled substance at d/c from ED?: No Referrals: Bhavani Hernandez NPC [Primary Care Provider] - 1-2 days
--- NOTE | 2020-05-27 13:39 | XR ---
EXAMINATION TYPE: XR chest 2V DATE OF EXAM: 05/27/2020 COMPARISON: 10/02/2019 INDICATION: Cough TECHNIQUE: Frontal and lateral views of the chest are obtained. FINDINGS: The heart size is normal. The pulmonary vasculature is normal. The lungs are clear. IMPRESSION: 1. No acute pulmonary process.
[2020-05-27 14:54] VITALS: BP 125/85; PULSE 96; RESP 16
== END 2020-05-27 14:58 | disposition home or self-care (01) ==
LOC: EC 12:28
DX: B34.9 Viral infection, unspecified (principal); R11.2 Nausea with vomiting, unspecified; Z20.828 Contact with and (suspected) exposure to other viral communicable diseases; Z79.899 Other long term (current) drug therapy; G43.909 Migraine, unspecified, not intractable, without status migrainosus
CPT/HCPCS: 71046; 99284; 96374; 96375 ×2; 96361 ×2; U0003; J1200; J2765; J1885

== ENCOUNTER → 2020-09-24 | Outpatient (CLI) | payer OTHER ==
[2020-09-25 03:12] LABS: T4, Free (Free Thyroxine) 1.1 ng/dL (0.80-1.80)
== END | disposition home or self-care (01) ==
LOC: LABWHC1 15:59
PROVIDERS: ATTEND Psychiatry & Neurology Neurology
DX: F41.9 Anxiety disorder, unspecified (principal)
CPT/HCPCS: 36415; 84439; 84443

== ENCOUNTER 2021-10-16 21:00 | Emergency (ER) | payer OTHER ==
[2021-10-16 21:22] VITALS: RESP 18
[2021-10-16] MEDS ORDERED: SUMAtriptan succinate 50 MG TAB PO STA (22:51)
[2021-10-16] MEDS ORDERED: ACETAMINOPHEN TAB 500 MG TAB PO STA (22:52)
--- NOTE | 2021-10-16 22:59 | ED ---
Headache HPI - General Chief Complaint: Headache Stated Complaint: Chronic Migraine Time Seen by Provider: 10/16/21 22:28 Source: RN notes reviewed Mode of arrival: ambulatory - History of Present Illness Initial Comments: This is a pleasant 21-year-old female with a history of migraine headaches. Patient states that she has had a headache all day. Headache is consistent with her previous migraine headaches. Patient states she takes Imitrex but is a student at [employer] and has not been able to get a refill of the Imitrex. States that when she takes this medication usually abates the headache quickly. Patient requesting 50 mg of Imitrex. Patient also requesting a prescription as she cannot get in with her regular physician for at least the next week. Patient also complaining of generalized body aches. She denies any shortness of breath or chest pain. No fever or chills. She states that the body aches generally don't come with her headache. Patient is immunized against COVID-19. Patient has not had COVID-19. no fever, but does have some chills this morning. Patient denying any dysuria. No vaginal discharge, no changes in vision or hearing, no sore throat or difficulty with speech, no neck pain, no chest pain or shortness of breath, no abdominal pain, no nausea or vomiting, no changes in urination or bowel movements, no numbness or tingling, no extremity pain, no skin rashes or lesions. MD Complaint: headache - Related Data Home Medications Medication Instructions Recorded Confirmed Atomoxetine HCl [Strattera] 40 mg PO DAILY 08/25/18 10/16/21 Loratadine [Claritin] 10 mg PO DAILY 06/06/19 10/16/21 SUMAtriptan succinate [Imitrex] 50 mg PO DAILY PRN 05/27/20 10/16/21 Ondansetron Odt [Zofran Odt] 4 mg PO Q8HR PRN 10/16/21 10/16/21 medroxyPROGESTERone [Depo-Provera] 150 mg IM Q90D 10/16/21 10/16/21 Previous Rx's Medication Instructions Recorded SUMAtriptan succinate [Imitrex] 50 mg PO ONCE PRN #9 tablet 10/16/21 Allergies Allergy/AdvReac Type Severity Reaction Status Date / Time No Known Allergies Allergy Verified 10/16/21 22:53 Review of Systems ROS Statement: Those systems with pertinent positive or pertinent negative responses have been documented in the HPI. ROS Other: All systems not noted in ROS Statement are negative. Past Medical History Past Medical History: No Reported History Additional Past Medical History / Comment(s): Migraines History of Any Multi-Drug Resistant Organisms: None Reported Past Surgical History: No Surgical Hx Reported Past Psychological History: No Psychological Hx Reported Smoking Status: Never smoker Past Alcohol Use History: None Reported Past Drug Use History: None Reported General Exam General appearance: alert, in no apparent distress Head exam: Present: atraumatic, normocephalic, normal inspection Eye exam: Present: normal appearance, PERRL, EOMI. Absent: scleral icterus, conjunctival injection, periorbital swelling Pupils: Present: normal accommodation ENT exam: Present: normal exam, normal oropharynx, mucous membranes dry, mucous membranes moist, TM's normal bilaterally, normal external ear exam Neck exam: Present: normal inspection, full ROM. Absent: tenderness, meningismus, lymphadenopathy Respiratory exam: Present: normal lung sounds bilaterally. Absent: respiratory distress, wheezes, rales, rhonchi, stridor Cardiovascular Exam: Present: normal rhythm, tachycardia, normal heart sounds. Absent: systolic murmur, diastolic murmur, rubs, gallop, clicks GI/Abdominal exam: Present: soft, normal bowel sounds. Absent: distended, tenderness, guarding, rebound, rigid Extremities exam: Present: normal inspection, full ROM, normal capillary refill. Absent: tenderness, pedal edema, joint swelling, calf tenderness Back exam: Present: normal inspection Neurological exam: Present: alert, oriented X3, CN II-XII intact Psychiatric exam: Present: normal affect, normal mood Skin exam: Present: warm, dry, intact, normal color. Absent: rash Course Vital Signs 10/16/21 10/16/21 21:18 23:15 Temperature 99.3 F 98.8 F Pulse Rate 116 H 85 Respiratory 18 18 Rate Blood Pressure 139/91 128/80 O2 Sat by Pulse 97 98 Oximetry Medical Decision Making - Medical Decision Making Patient presents with what she is stating is her normal migraine headache. Patient requested Imitrex. I'll go ahead and give that to her here. I'm going to prescribe a short course, patient up with her regular physician. Patient has had body aches as well. No respiratory distress. However COVID-19 or influenza is within the differential. Patient did agree to be tested for this as well. However, not going to make the patient wait for results. Follow-up with your regular physician as directed. Return to the ER immediately if any symptoms worsen, new symptoms arise, or any other problems develop. Supervisors Dr. Lockwood - Lab Data Lab Results 10/16/21 Range/Units 22:57 Influenza Type A (PCR) Not Detected (Not Detectd) Influenza Type B (PCR) Not Detected (Not Detectd) RSV (PCR) Not Detected (Not Detectd) SARS-CoV-2 (PCR) Detected A (Not Detectd) Disposition Clinical Impression: Migraine headache, Generalized body aches, COVID-19 Disposition: HOME SELF-CARE Condition: Good Instructions (If sedation given, give patient instructions): Migraine Headache (ED) Additional Instructions: Follow-up with your regular physician as directed. Return to the ER immediately if any symptoms worsen, new symptoms arise, or any other problems develop. SELF QUARANTINE DISCHARGE: As you are at risk for symptoms due to coronavirus, please stay home and stay away from others as much as possible. Please maintain social distance of 6 feet if possible. You should not return to work until at least 3 days (72 hours) have passed since recovery of symptoms. This defined as resolution of fever without the use of fever reducing medicines and improvement in respiratory symptoms (e.g,, cough, shortness of breath) Isolation can end at least 5 days after symptom onset and after fever ends for 24 hours (without the use of fever-reducing medication) and symptoms are improving, if these people can continue to properly wear a well-fitted mask around others for 5 more days after the 5-day isolation period. If you're still having symptoms at the end of 5 day period, isolate for an additional 5 days. More information about what to do if you are sick can be found on the CDC website at https://www.cdc.gov/coronavirus/2019-ncov/yg-axz-yum-sick/mrwwa-zrvk-ndln.html Expect the symptoms to last for 7-14 days from onset. Use acetaminophen (Tylenol) as needed for discomfort. You can take a maximum of 1 gram every 6 hours for discomfort, with your total dose in 24 hours not exceeding 4 grams. Be sure to maintain hydration. Drink continuous water and/or items high in vitamin C, such as orange juice and/or lemonade. Unless you have high blood pressure, you may consider Sudafed (which is [id number]) for nasal congestion. I would suggest that a short acting Sudafed rather than the 24 hour Sudafed. For a cough you may take Mucinex or Robitussin. Also consider the use of Vicks Vapor Rub or your chest when you sleep. Use a humidifier that is cleaned frequently, in the bedroom at night. For Nausea /Vomiting/Diarrhea associated with your Illness: o Small frequent sips of room temperature liquids. o Diet: [employer] Foods - If you are still experiencing discomfort and/or nausea please slowly advancing your diet using the BRAT Diet = bananas, rice, apples/apple sauce, toast. o With diarrhea avoid any dairy for 48 hours after symptoms resolved. o Continue with activity as tolerated. If your symptoms do get worse and you believe that the upper respiratory infection has developed into something else, such as pneumonia or severe dehydration, please return to the emergency department or follow-up with your primary care. But expect to be symptomatic for the days as indicated above Prescriptions: SUMAtriptan succinate [Imitrex] 50 mg PO ONCE PRN #9 tablet PRN Reason: Headache Is patient prescribed a controlled substance at d/c from ED?: No Referrals: Vasquez Montiel MD [Primary Care Provider] - 1-2 days Time of Disposition: 22:52
[2021-10-16 23:17] VITALS: BP 128/80; PULSE 85; TEMP 98.8
== END 2021-10-16 23:17 | disposition home or self-care (01) ==
LOC: EC 21:00
DX: G43.909 Migraine, unspecified, not intractable, without status migrainosus (principal); U07.1 COVID-19
CPT/HCPCS: 87636; 99283

== ENCOUNTER 2022-04-20 22:26 | Emergency (ER) | payer OTHER ==
[2022-04-20 22:31] VITALS: TEMP 98.4
[2022-04-20] MEDS ORDERED: IPRATROPIUM-ALBUTEROL 3 ML NEB INHALATION STA (22:56)
[2022-04-20] MEDS ORDERED: dexAMETHasone 2 MG TAB PO STA (22:56)
--- NOTE | 2022-04-20 23:03 | ED ---
URI HPI - General Chief Complaint: Upper Respiratory Infection Stated Complaint: L ear pain,back pain Time Seen by Provider: 04/20/22 22:41 Source: patient, RN notes reviewed Mode of arrival: ambulatory Limitations: no limitations - History of Present Illness Initial Comments: This is a 22-year-old female who presents to the emergency department for coug shy, congestion, and difficulty breathing. States that for the last month, she has had problems with what feels like a progressive upper respiratory infection. She originally had fevers, body aches, and headaches, which have since resolved. She is now experiencing a loss of taste and smell, fullness to the left ear, coughing, and difficulty breathing. Denies any history of asthma or other respiratory illnesses, however she does smoke cigarettes on a daily basis. Several days ago, she was given a prescription to help her throat, states that she was given 2 pills but does not recall what these were. States that these did not improve her symptoms. She is very tearful and anxious in the examination room, stating that she will not be able to finish her classes due to her symptoms and overall feels very ill. She has never had problems with being this sick in the past and states that this is all very new to her. Denies any fevers, chills, palpitations, abdominal pain, nausea, vomiting, diarrhea, back pain, or headaches. MD Complaint: cough, sore throat, nasal congestion Onset/Timin -: month(s) - Related Data Home Medications Medication Instructions Recorded Confirmed Atomoxetine HCl [Strattera] 40 mg PO DAILY 08/25/18 10/16/21 Loratadine [Claritin] 10 mg PO DAILY 06/06/19 10/16/21 SUMAtriptan succinate [Imitrex] 50 mg PO DAILY PRN 05/27/20 10/16/21 Ondansetron Odt [Zofran Odt] 4 mg PO Q8HR PRN 10/16/21 10/16/21 medroxyPROGESTERone [Depo-Provera] 150 mg IM Q90D 10/16/21 10/16/21 Previous Rx's Medication Instructions Recorded SUMAtriptan succinate [Imitrex] 50 mg PO ONCE PRN #9 tablet 10/16/21 Albuterol Sulfate [Albuterol 1 puff PO Q4-6H PRN #8.5 gm 11/07/22 Sulfate Hfa] Doxycycline [Vibramycin] 100 mg PO BID 7 Days #14 cap 04/21/22 Fluticasone Nasal [place] [Flonase 1 spray EA NOSTRIL DAILY #16 gm 04/21/22 Nasal [place]] Promethazine/Dextromethorphan 5 ml PO Q4-6H PRN #473 ml 04/21/22 [Promethazine-Dm Syrup] predniSONE 50 mg PO DAILY 5 Days #5 tablet 04/21/22 Allergies Allergy/AdvReac Type Severity Reaction Status Date / Time No Known Allergies Allergy Verified 04/20/22 22:31 Review of Systems ROS Statement: Those systems with pertinent positive or pertinent negative responses have been documented in the HPI. ROS Other: All systems not noted in ROS Statement are negative. Past Medical History Past Medical History: No Reported History Additional Past Medical History / Comment(s): Migraines History of Any Multi-Drug Resistant Organisms: None Reported Past Surgical History: No Surgical Hx Reported Past Psychological History: No Psychological Hx Reported Smoking Status: Current every day smoker Past Alcohol Use History: None Reported Past Drug Use History: None Reported General Exam Limitations: no limitations General appearance: alert, anxious Head exam: Present: atraumatic, normocephalic, normal inspection ENT exam: Present: other (Serous fluid behind the TM on the left, no erythema.) Respiratory exam: Present: other (Very coarse breath sounds bilaterally). Absent: accessory muscle use Cardiovascular Exam: Present: normal rhythm, tachycardia. Absent: systolic murmur, diastolic murmur Neurological exam: Present: alert, oriented X3, CN II-XII intact Psychiatric exam: Present: anxious Skin exam: Present: warm, dry, intact, normal color. Absent: rash Course Vital Signs 04/20/22 04/20/22 04/20/22 22:29 23:14 23:19 Temperature 98.4 F Pulse Rate 124 H 112 H 108 H Respiratory 20 Rate Blood Pressure 161/107 O2 Sat by Pulse 98 Oximetry 04/21/22 00:56 Temperature 98.4 F Pulse Rate 102 H Respiratory 19 Rate Blood Pressure 143/93 O2 Sat by Pulse 99 Oximetry Medical Decision Making - Medical Decision Making This is a 22-year-old female who presents to the emergency department for coughing and congestion. Chest x-ray obtained, I did not identify any infiltrates or consolidations. Cepheid 4-Plex negative for COVID, influenza, a nd RSV. She was given a dose of Decadron and a DuoNeb breathing treatment in the emergency department. States that the DuoNeb did help her symptoms substantially. Discussed that she likely developed a secondary bacterial infection from what started out as a viral infection. I advised starting a course of antibiotics at this time. She was given a dose of doxycycline in the emergency department and a 7 day course was sent to her pharmacy. Doxycycline was chosen to cover for bacteria in both the sinuses and the lower respiratory tract. She was also given a prescription for a 5 day course of prednisone. Flonase nasal spray prescribed to be used as 1 spray in each nostril daily until her symptoms resolve, which I advised will also help with the serous otitis media in the left ear. Albuterol inhaler and promethazine DM cough syrup prescribed to be used every 4-6 hours as needed for symptomatic management. Advised she take the first dose of the cough medicine at night until she knows how it affects her, as it may be sedating. Return precautions reviewed in depth, the patient is instructed to return to the emergency department with any new, worsening, or concerning symptoms. Patient verbalized understanding. This case was discussed in detail with the attending ED physician. Presentation, findings, and treatment plan discussed in detail as well. - Lab Data Lab Results 04/20/22 Range/Units 23:16 Influenza Type A (PCR) Not Detected (Not Detectd) Influenza Type B (PCR) Not Detected (Not Detectd) RSV (PCR) Not Detected (Not Detectd) SARS-CoV-2 (PCR) Not Detected (Not Detectd) - Radiology Data Radiology results: report reviewed, image reviewed Disposition Clinical Impression: Sinusitis, Bronchitis Disposition: HOME SELF-CARE Instructions (If sedation given, give patient instructions): Sinusitis (ED), Acute Bronchitis (ED), Fluid In The Ear (Serous Otitis Media) (ED) Additional Instructions: Return to the emergency department with any new, worsening, or concerning symptoms. Take the antibiotic twice daily for 7 days. Take the prednisone daily for 5 days. Use the Flonase nasal spray as 1 spray in each nostril daily, use this until your symptoms resolve. The inhaler can be used every 4-6 hours as needed for coughing and difficulty breathing. The cough medication can also be used every 4-6 hours. Take your first dose of this at night until you know how it affects you, as it may be sedating. Follow up with your primary care provider in 1-2 days. Prescriptions: Albuterol Sulfate [Albuterol Sulfate Hfa] 1 puff PO Q4-6H PRN #8.5 gm PRN Reason: Shortness Of Breath Fluticasone Nasal [place] [Flonase Nasal [place]] 1 spray EA NOSTRIL DAILY #16 gm predniSONE 50 mg PO DAILY 5 Days #5 tablet Promethazine/Dextromethorphan [Promethazine-Dm Syrup] 5 ml PO Q4-6H PRN #473 ml PRN Reason: Cough Doxycycline [Vibramycin] 100 mg PO BID 7 Days #14 cap Is patient prescribed a controlled substance at d/c from ED?: No Referrals: Vasquez Montiel MD [Primary Care Provider] - 1-2 days
--- NOTE | 2022-04-20 23:54 | XR ---
EXAMINATION TYPE: XR chest 2V DATE OF EXAM: 04/20/2022 COMPARISON: 05/27/2020 HISTORY: Cough TECHNIQUE: FINDINGS: Heart and mediastinum are normal. Lungs are clear of consolidation. There are no hilar mass es. The bony thorax is intact. The pulmonary vascularity is normal. IMPRESSION: Normal chest. No change.
[2022-04-21] MEDS ORDERED: DOXYCYCLINE 100 MG CAP PO STA (00:29)
[2022-04-21 00:57] VITALS: BP 143/93; PULSE 102; RESP 19
== END 2022-04-21 00:57 | disposition home or self-care (01) ==
LOC: EC 22:26
DX: J32.9 Chronic sinusitis, unspecified (principal); J40 Bronchitis, not specified as acute or chronic; F17.200 Nicotine dependence, unspecified, uncomplicated; Z79.899 Other long term (current) drug therapy; Z20.822 Contact with and (suspected) exposure to COVID-19
CPT/HCPCS: 94640; 87636; 71046; 99285; J8540

== ENCOUNTER → 2023-02-13 | Outpatient (CLI) | payer OTHER ==
--- NOTE | 2023-02-14 13:46 | MR ---
EXAMINATION TYPE: MR brain wo/w con DATE OF EXAM: 02/13/2023 8:38 PM CLINICAL INDICATION:Female, 22 years old with history of G43.909 MIGRAINE, UNSP, NOT INTRACTABLE, WIT HOUT S; Migraines with vomiting COMPARISON: 519 10/31/2017 TECHNIQUE: Multi planar, multi sequence imaging was performed through the brain including: T1, T2, In version recovery, susceptibility weighted imaging and gradient echo imaging and Diffusion weighted im aging. The patient was then given intravenous contrast and multi planar, T1 fat-saturation images wer e obtained. IV Contrast: 6.5 cc Gadavist FINDINGS: The cerebellar tonsils extend below the foramen magnum approximately 2 mm. Right frontal lobe bloomin g artifact suggestive of capillary telangiectasia. Left hank blooming artifact focus compatible with microhemorrhage. The medina-white junctions, ventricular system, basal cisterns appear unremarkable. Diffusion-weighted imaging shows no evidence of restricted diffusion to suggest acute/subacute infarct. Intracranial art erial flow voids are maintained. Midline structures show no abnormality. The susceptibility weighted images do not reveal any evidence for micro-hemorrhage. After administration of gadolinium, no abnorm al enhancement is seen. The bone marrow signal is within normal limits. Paranasal sinuses and mastoid air cells: No significant paranasal sinus disease. Visualized orbits: Orbital contents are intact. IMPRESSION: 1. No significant change from prior 10/21/2018. 2. 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 Additional microhemorrhage wit hin the left hank. 3. Similar scattered cerebellar tonsillar ectopia, up to 2 mm below the foramen magnum.
== END | disposition home or self-care (01) ==
LOC: RADMRIMAIN 19:36
PROVIDERS: ATTEND Internal Medicine
DX: G43.909 Migraine, unspecified, not intractable, without status migrainosus (principal); G93.9 Disorder of brain, unspecified
CPT/HCPCS: 70553; A9585